=== PATIENT | female | born 1995 | race Two or more races ===

== ENCOUNTER 2017-04-14 00:49 | Emergency (ER) | payer OTHER ==
[2017-04-14 01:01] VITALS: BP 129/77; PULSE 98; TEMP 98.1; BMI 35.0
[2017-04-14 01:22] LABS: URINE APPEARANCE CLEAR; URINE BILIRUBIN NEGATIVE (NEGATIVE); URINE BLOOD NEGATIVE (NEGATIVE); URINE COLOR YELLOW; URINE GLUCOSE (UA) NEGATIVE (NEGATIVE); URINE KETONE NEGATIVE (NEGATIVE); URINE LEUK ESTERASE NEGATIVE (NEGATIVE); URINE NITRITE NEGATIVE (NEGATIVE); URINE PROTEIN NEGATIVE (NEGATIVE); URINE UROBILINOGEN NEGATIVE E.U./dl (0.2-1.0)
--- NOTE | 2017-04-14 02:42 | PDOC ---
History of Present Illness - General Chief Complaint: Pain Stated Complaint: BACK PAIN Time Seen by Provider: 04/14/17 00:52 History Source: Patient Exam Limitations: No Limitations - History of Present Illness Travel History: No Initial Comments: 04/14/17 03:12 22-year-old female with no medical history presents to the emergency department complaining of suprapubic cramping 3 days. Patient denies n/v. f/c/d, abdominal pains, flank pains, urinary symptoms: Frequency/urgency/hesitancy, hematuria, chest pain, shortness of breath. Patient states she's been having cramps for the past 3 days. There are no alleviating or exacerbating factors. LMP 04/04/2017 04/14/17 03:15 Timing/Duration: reports: intermittent Quality: reports: cramping Abdominal Pain Onset Location: reports: LLQ, suprapubic Pain Radiation: reports: no radiation Past History - Past Medical History Allergies/Adverse Reactions: Allergies Allergy/AdvReac Type Severity Reaction Status Date / Time No Known Allergies Allergy Verified 04/14/17 01:01 Home Medications: Ambulatory Orders Amoxicillin/Potassium Clav [Augmentin 875-125 Tablet] 1 each PO BID #20 tablet 10/25/15 Ibuprofen 600 mg PO QID #30 tablet 10/25/15 Other medical history: denies - Psycho/Social/Smoking Cessation Hx Suicidal Ideation: No Smoking Status: No Smoking History: Never smoked Number of Cigarettes Smoked Daily: 0 Hx Alcohol Use: No Drug/Substance Use Hx: No Review of Systems - Review of Systems Able to Perform ROS?: Yes Comments:: 04/14/17 03:13 CONSTITUTIONAL: Absent: fever, chills, diaphoresis, generalized weakness, malaise, loss of appetite HEENT: Absent: rhinorrhea, nasal congestion, throat pain, throat swelling, difficulty swallowing, mouth swelling, ear pain, eye pain, visual Changes CARDIOVASCULAR: Absent: chest pain, loss of consciousness, palpitations, irregular heart rate, peripheral edema RESPIRATORY: Absent: cough, shortness of breath, dyspnea with exertion, orthopnea, wheezing, stridor, hemoptysis GASTROINTESTINAL: +mid suprapubic cramp Absent: abdominal pain, abdominal distension, nausea, vomiting, diarrhea, constipation, melena, hematochezia GENITOURINARY: Absent: dysuria, frequency, urgency, hesitancy, hematuria, flank pain, genital pain MUSCULOSKELETAL: Absent: myalgia, arthralgia, joint swelling SKIN: Absent: rash, itching, pallor HEMATOLOGIC/IMMUNOLOGIC: Absent: easy bleeding, easy bruising, lymphadenopathy, frequent infections ENDOCRINE: Absent: unexplained weight gain, unexplained weight loss, heat intolerance, cold intolerance NEUROLOGIC: Absent: headache, focal weakness or paresthesias, dizziness, unsteady gait, seizure, mental status changes, bladder or bowel incontinence PSYCHIATRIC: Absent: anxiety, depression, suicidal or homicidal ideation, hallucinations. Is the patient limited Lithuanian proficient: No *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 - Vital Signs Last Vital Signs Temp Pulse Resp BP Pulse Ox 98.1 F 98 H 18 129/77 99 04/14/17 00:58 04/14/17 00:58 04/14/17 00:58 04/14/17 00:58 04/14/17 00:58 - 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 Comments: 04/14/17 03:14 GENERAL: Well developed, well nourished. Awake and alert. No acute distress. HEENT: Normocephalic, atraumatic. PERRLA, EOMI. No conjunctival pallor. Sclera are non- icteric. Moist mucous membranes. Oropharynx is clear. NECK: Supple. Full ROM. No JVD. Carotid pulses 2+ and symmetric, without bruits. No thyromegaly. No lymphadenopathy. CARDIOVASCULAR: Regular rate and rhythm. No murmurs, rubs, or gallops. Distal pulses are 2+ and symmetric. PULMONARY: No evidence of respiratory distress. Lungs clear to auscultation bilaterally. No wheezing, rales or rhonchi. ABDOMINAL: Soft. Non-tender. Non-distended. No rebound or guarding. No organomegaly. Normoactive bowel sounds. MUSCULOSKELETAL Normal range of motion at all joints. No bony deformities or tenderness. No CVA tenderness. EXTREMITIES: No cyanosis. No clubbing. No edema. No calf tenderness. SKIN: Warm and dry. Normal capillary refill. No rashes. No jaundice. NEUROLOGICAL: Alert, awake, appropriate. Cranial nerves 2-12 intact. No deficits to light touch and temperature in face, upper extremities and lower extremities. No motor deficits in the in face, upper extremities and lower extremities. Normoreflexic in the upper and lower extremities. Normal speech. Toes are down- going bilaterally. Gait is normal without ataxia. PSYCHIATRIC: Cooperative. Good eye contact. Appropriate mood and affect. ED Treatment Course - LABORATORY CBC & Chemistry Diagram: 04/14/17 02:40 04/14/17 02:40 - ADDITIONAL ORDERS Additional order review: Laboratory Results 04/14/17 04/14/17 00:52 00:51 Urine Color Yellow Urine Appearance Clear Urine pH 5.0 Urine Protein Negative Urine Glucose (UA) Negative Urine Ketones Negative Urine Blood Negative Urine Nitrite Negative Urine Bilirubin Negative Urine Urobilinogen Negative Ur Leukocyte Esterase Negative Urine HCG, Qual Negative Progress Note - Progress Note Progress Note: Patient adamantly refuses to have a CAT scan of her abdomen and pelvis. Patient states she is trying to get . *DC/Admit/Observation/Transfer Diagnosis at time of Disposition: Suprapubic pain - Discharge Dispostion Disposition: HOME Condition at time of disposition: Stable Admit: No - Referrals Referrals: Clark Sales MD [Staff Physician] - - Patient Instructions Additional Instructions: Rest Increase fluids Follow up with the physician on your discharge Return to the ER for severe/persistent/worsening symptoms
[2017-04-14 03:03] LABS: BASOPHIL 0.4 % (0-2.0); EOSINOPHIL 1.3 % (0-4.5); MCH 27.6 pg (25.7-33.7); MCHC 33.1 g/dl (32.0-36.0); MEAN CELL VOLUME 83.4 fl (80-96); MEAN PLT VOLUME 9.1 fl (7.5-11.1); NEUTROPHILS 45.6 % (42.8-82.8); PLATELET COUNT 256 K/MM3 (134-434); RDW 13.1 % (11.6-15.6); WHITE BLOOD COUNT 5.2 K/mm3 (4.0-10.0)
[2017-04-14 03:36] LABS: ALBUMIN 3.5 g/dl (3.4-5.0); ANION GAP 10 (8-16); BILIRUBIN,TOTAL 0.4 mg/dL (0.2-1.0); CALCIUM 8.4 mg/dL (8.5-10.1); CO2 25 mmol/L (21-32); COCKROFT - GAULT 206.7455; CREATININE 0.6 mg/dL (0.55-1.02); GLUCOSE,RANDOM 103 mg/dL (74-106); SGPT/ALT 34 U/L (12-78); TOT PROT 6.8 g/dl (6.4-8.2)
[2017-04-14 03:37] LABS: ALK PHOS 115 U/L (45-117)
[2017-04-14 03:38] LABS: SGOT/AST 34 U/L (15-37)
[2017-04-14 06:11] LABS: PLATELET ESTIMATE ADEQUATE (NORMAL)
== END 2017-04-14 03:19 | disposition home or self-care (01) ==
LOC: JER 00:49
DX: R10.2 Pelvic and perineal pain (principal)
CPT/HCPCS: 36415; 80053; 81003; 84703; 85025; 99281-25

== ENCOUNTER 2017-06-21 10:56 | Emergency (ER) | payer OTHER ==
[2017-06-21 11:03] VITALS: BP 128/72; PULSE 91; TEMP 98.1; BMI 34.0
--- NOTE | 2017-06-21 11:22 | PDOC ---
History of Present Illness - General Chief Complaint: Headache Stated Complaint: HEADACHE (12 WKS ) Time Seen by Provider: 06/21/17 11:16 History Source: Patient Exam Limitations: No Limitations - History of Present Illness Initial Comments: CHIEF COMPLAINT: 22 y/o afebrile female, , approximately 12 week female c/o headache x 1 week. HISTORY OF PRESENT ILLNESS: The patient states the headache is intermittent and located in her temples. She has been taking 650mg of tylenol intermittently with last dose at 2am. She denies f/c, neck pain, changes in vision/hearing, dizziness, cough, n/v/d, CP, SOB, abd pain, back pain, abnormal vaginal discharge, vaginal bleeding. Her LMP was 03/27/17 and her due date is . ER REGISTRAR is Heather Singh Vital signs on arrival are within normal limits. REVIEW OF SYSTEMS: GENERAL/CONSTITUTIONAL: No fever/chills. No weakness. No weight change. HEAD, EYES, EARS, NOSE AND THROAT: No change in vision. No ear pain or discharge. No sore throat. CARDIOVASCULAR: No chest pain or shortness of breath. RESPIRATORY: No cough, wheezing, or hemoptysis. GASTROINTESTINAL: No nausea, vomiting, diarrhea, abdominal pain. GENITOURINARY: No dysuria, frequency, or change in urination. No vaginal bleeding or discharge. MUSCULOSKELETAL: No joint or muscle swelling or pain. No neck or back pain. SKIN: No rash or easy bruising. NEUROLOGIC: No headache, vertigo, loss of consciousness, or loss of sensation. PHYSICAL EXAM: GENERAL: The patient is awake, alert, and fully oriented, in no acute distress. HEAD: Normal with no signs of trauma. Some TTP of caodaism region b/l. No TTP of sinuses. ENT: Pupils equal, round and reactive to light, extraocular movements intact, sclera anicteric, conjunctiva clear. Neck supple. No midline cervical spine TTP or step offs. LUNGS: Clear to auscultation bilaterally. Normal excursion. No respiratory distress or use of accessory muscles. CV: RRR, S1/S2, no MRG. Cap refill < 2 sec. ABDOMEN: Soft, non-distended, non-tender even to deep palpation, no hepatomegaly or splenomegaly, no masses. EXTREMITIES: Normal range of motion, no edema. NEUROLOGICAL: Normal speech, normal gait. CN II-XII grossly intact. PSYCH: Normal mood, normal affect. SKIN: Warm, dry, normal turgor, no rashes or lesions noted. Past History - Past Medical History Allergies/Adverse Reactions: Allergies Allergy/AdvReac Type Severity Reaction Status Date / Time No Known Allergies Allergy Verified 06/21/17 11:01 Home Medications: Ambulatory Orders NK [No Known Home Medication] 06/21/17 Other medical history: denies - Immunization History Immunization Up to Date: Yes - Psycho/Social/Smoking Cessation Hx Suicidal Ideation: No Smoking Status: No Smoking History: Never smoked Number of Cigarettes Smoked Daily: 0 Hx Alcohol Use: No Drug/Substance Use Hx: No *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 - Vital Signs Last Vital Signs Temp Pulse Resp BP Pulse Ox 98.1 F 91 H 18 128/72 100 06/21/17 11:01 06/21/17 11:01 06/21/17 11:01 06/21/17 11:01 06/21/17 11:01 Medical Decision Making - Medical Decision Making A/P: 22 y/o afebrile female, approximately 12 weeks , c/o intermittent MANLEY x 1 week. Given normal exam, will check BP and UA. Informed the patient if both her BP and her UA are normal, will treat with Tylenol and informed her there is not much else to be done except OB follow up. UA negative for proteinuria and UTI. Informed the patient that due to hormones she may have headaches periodically. Suggested she drink 64oz of water daily, take tylenol for MANLEY and f/u with her ER REGISTRAR as soon as possible. Pt instructed her to return to the ER with any worsening or concerning symptoms. The patient verbalizes understanding of all instructions, has no further questions and is awaiting discharge. *DC/Admit/Observation/Transfer Diagnosis at time of Disposition: headache in first trimester - Discharge Dispostion Disposition: HOME Condition at time of disposition: Good - Referrals Referrals: Heather Singh MD [Primary Care Provider] - (Call today) - Patient Instructions Printed Discharge Instructions: DI for Headache Additional Instructions: Discharge Instructions: -Headaches in the first trimester are common due to hormones. -You can take tylenol for headache every 4 hours -Drink at least 64oz of water daily -Call your ER REGISTRAR today to schedule follow up appointment -Return to the ER with any worsening or concerning symptoms.
[2017-06-21 12:31] LABS: URINE APPEARANCE SLCLOUDY; URINE BILIRUBIN NEGATIVE (NEGATIVE); URINE BLOOD NEGATIVE (NEGATIVE); URINE COLOR LTYELLOW; URINE GLUCOSE (UA) NEGATIVE (NEGATIVE); URINE KETONE NEGATIVE (NEGATIVE); URINE LEUK ESTERASE NEGATIVE (NEGATIVE); URINE NITRITE NEGATIVE (NEGATIVE); URINE PROTEIN NEGATIVE (NEGATIVE); URINE UROBILINOGEN NEGATIVE mg/dL (0.2-1.0)
== END 2017-06-21 12:43 | disposition home or self-care (01) ==
LOC: JERFT 10:56
DX: O99.89 Other specified diseases and conditions complicating pregnancy, childbirth and the puerperium (principal); R51 Headache; Z3A.12 12 weeks gestation of pregnancy
CPT/HCPCS: 81003; 87086; 99281-25

== ENCOUNTER 2017-08-07 12:27 | Emergency (ER) | payer OTHER ==
[2017-08-07 12:33] VITALS: BMI 34.3
--- NOTE | 2017-08-07 13:03 | PDOC ---
*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 - Vital Signs Last Vital Signs Temp Pulse Resp BP Pulse Ox 98.3 F 91 H 20 120/68 100 08/07/17 12:30 08/07/17 12:30 08/07/17 12:30 08/07/17 12:30 08/07/17 12:30
--- NOTE | 2017-08-07 13:28 | PDOC ---
History of Present Illness - General Chief Complaint: Pain Stated Complaint: ABD PAIN (19 WKS ) Time Seen by Provider: 08/07/17 12:49 Past History - Past Medical History Allergies/Adverse Reactions: Allergies Allergy/AdvReac Type Severity Reaction Status Date / Time No Known Allergies Allergy Verified 08/07/17 12:33 Home Medications: Ambulatory Orders Vit Calc,Iron,Folic [ Vitamins] 1 each PO DAILY 08/07/17 Other medical history: NONE - Immunization History Immunization Up to Date: Yes - Suicide/Smoking/Psychosocial Hx Smoking Status: No Smoking History: Never smoked Number of Cigarettes Smoked Daily: 0 Hx Alcohol Use: No Drug/Substance Use Hx: No *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 - Vital Signs Last Vital Signs Temp Pulse Resp BP Pulse Ox 98.3 F 91 H 20 120/68 100 08/07/17 12:30 08/07/17 12:30 08/07/17 12:30 08/07/17 12:30 08/07/17 12:30 ED Treatment Course - LABORATORY CBC & Chemistry Diagram: 08/07/17 13:32 08/07/17 13:32 *DC/Admit/Observation/Transfer Diagnosis at time of Disposition: Abdominal pain affecting - Discharge Dispostion Disposition: HOME Condition at time of disposition: Good Admit: No - Referrals Referrals: STAFF,NOT ON [Primary Care Provider] - - Patient Instructions Printed Discharge Instructions: DI for Abdominal Pain -- Early Additional Instructions: You have abdominal pain in . Your testing today was normal. Your ultrasound showed a heart rate that was appropriate for the baby's age. Follow up with your ACLS SPECIALIST Caroline Singh on Saturday. You may take Tylenol for pain not to exceed 4,000mg a day. Return to the ED immediately if you have worsening pain, fevers, chills, bleeding, or any changes in your symptoms. - Post Discharge Activity Forms/Work/School Notes: Back to Work
[2017-08-07 13:48] LABS: BASOPHIL 0.3 % (0-2.0); EOSINOPHIL 1.5 % (0-4.5); MCH 28.5 pg (25.7-33.7); MCHC 34.5 g/dl (32.0-36.0); MEAN CELL VOLUME 82.7 fl (80-96); MEAN PLT VOLUME 8.5 fl (7.5-11.1); NEUTROPHILS 70.2 % (42.8-82.8); PLATELET COUNT 198 K/MM3 (134-434); RDW 13.9 % (11.6-15.6)
[2017-08-07 14:05] LABS: ALBUMIN 3.3 g/dl (3.4-5.0); ANION GAP 10 (8-16); BILIRUBIN,TOTAL 0.3 mg/dL (0.2-1.0); CALCIUM 9.2 mg/dL (8.5-10.1); CO2 24 mmol/L (21-32); CREATININE 0.5 mg/dL (0.55-1.02); GLUCOSE,RANDOM 73 mg/dL (74-106); SGOT/AST 18 U/L (15-37); SGPT/ALT 25 U/L (12-78); TOT PROT 6.7 g/dl (6.4-8.2)
[2017-08-07 14:22] LABS: ALK PHOS 62 U/L (45-117)
[2017-08-07] MEDS ORDERED: ACETAMINOPHEN 325 MG TABLET (FP) PO ONE (14:41)
[2017-08-07 14:49] LABS: URINE APPEARANCE CLEAR; URINE BILIRUBIN NEGATIVE (NEGATIVE); URINE BLOOD NEGATIVE (NEGATIVE); URINE COLOR LTYELLOW; URINE GLUCOSE (UA) NEGATIVE (NEGATIVE); URINE KETONE NEGATIVE (NEGATIVE); URINE LEUK ESTERASE NEGATIVE (NEGATIVE); URINE NITRITE NEGATIVE (NEGATIVE); URINE PROTEIN NEGATIVE (NEGATIVE); URINE UROBILINOGEN NEGATIVE mg/dL (0.2-1.0)
[2017-08-07] MEDS ORDERED: ACETAMINOPHEN 325 MG TABLET (FP) ONE (14:53)
[2017-08-07] MEDS ORDERED: SODIUM CHLORIDE 1,000 ML IV STA (15:47)
[2017-08-07 18:39] VITALS: BP 116/68; PULSE 74; TEMP 98.4
== END 2017-08-07 18:39 | disposition home or self-care (01) ==
LOC: JER 12:27
PROC: 3E0337Z Introduction of Electrolytic and Water Balance Substance into Peripheral Vein, Percutaneous Approach (ICD-10-PCS; principal; 2017-08-07)
DX: O26.892 Other specified pregnancy related conditions, second trimester (principal); R10.84 Generalized abdominal pain; Z3A.19 19 weeks gestation of pregnancy
CPT/HCPCS: 36415; 76700-TC; 76801-TC; 80053; 81003; 83690; 84702; 85025; 87086; 96360; 99282-25

== ENCOUNTER 2017-12-18 09:27 | Inpatient (IN) | payer OTHER ==
[2017-12-18] MEDS: LACTATED RINGERS SOLUTION 1,000 ML IV SCH (10:15)
[2017-12-18 11:17] LABS: INR 0.96 (0.82-1.09); PROTHROMBIN TIME (PATIENT) 10.9 SEC (9.98-11.88)
[2017-12-18 11:19] LABS: BASO % 0.4 % (0-2.0); EOS % 2.1 % (0-4.5); HEMATOCRIT 34.2 % (32.4-45.2); HEMOGLOBIN 11.5 GM/dL (10.7-15.3); LYMPH % 28.1 % (8-40); MCH 27.8 pg (25.7-33.7); MCHC 33.5 g/dl (32.0-36.0); MEAN CELL VOLUME 82.9 fl (80-96); MEAN PLT VOLUME 9.6 fl (7.5-11.1); MONO % 8.5 % (3.8-10.2); NEUT % 60.9 % (42.8-82.8); PLATELET COUNT 158 K/MM3 (134-434); RBC 4.12 M/mm3 (3.60-5.2); RDW 14.6 % (11.6-15.6); WHITE BLOOD COUNT 5.5 K/mm3 (4.0-10.0)
[2017-12-18 11:20] LABS: ACTIVATED PTT 25.7 SECONDS (26.9-34.4)
[2017-12-18 11:21] VITALS: BMI 32.4
[2017-12-18 11:23] LABS: ANION GAP 8 (8-16); BLOOD UREA NITROGEN 9 mg/dL (7-18); CALCIUM 8.4 mg/dL (8.5-10.1); CHLORIDE 108 mmol/L (98-107); CO2 24 mmol/L (21-32); CREATININE 0.6 mg/dL (0.55-1.02); GLUCOSE,RANDOM 67 mg/dL (74-106); POTASSIUM 3.8 mmol/L (3.5-5.1); SODIUM 140 mmol/L (136-145)
[2017-12-18] MEDS ORDERED: CITRIC ACID/SODIUM CITRATE 30 ML UNIT-DOSE CUP PO ONE (14:38)
--- NOTE | 2017-12-18 14:44 | HP ---
Past Medical History - Admission Chief Complaint: Previous / Oligohydramnios / Breech History of Present Illness: 22 yo @ 39 weeks gestation, EDC 01/01/18, sent from Dr. Coleman's office for delivery. She had one previous and was diagnosed with oligohydramnios. Fetus is in breech presentation. History Source: Patient Limitations to Obtaining History: No Limitations - Past Medical History ...: 2 ...Para: 1 ...Term: 1 ...: 0 ...Spon : 0 ...Induced : 0 ...Multiple Gestation: 0 ...LMP: 03/27/17 ... Weeks Gestation by Dates: 38.0 ...EDC by Dates: 01/01/18 ...EDC by Sono: 01/01/18 - Past Surgical History Past Surgical History: Yes: Hx Myomectomy: No Hx Transabdominal Cerclage: No - Smoking History Smoking history: Never smoked Have you smoked in the past 12 months: No Aproximately how many cigarettes per day: 0 - Alcohol/Substance Use Hx Alcohol Use: No History of Substance Use: reports: None - Social History Usual Living Arrangement: Yes: With Spouse History of Recent Travel: No Home Medications - Allergies Allergies/Adverse Reactions: Allergies Allergy/AdvReac Type Severity Reaction Status Date / Time No Known Allergies Allergy Verified 12/18/17 10:54 - Home Medications Home Medications: Ambulatory Orders Vit Calc,Iron,Folic [ Vitamins] 1 each PO DAILY 08/07/17 Ferrous Sulfate [Iron] 325 mg PO DAILY 12/18/17 Review of Systems - Review of Systems Constitutional: reports: No Symptoms Eyes: reports: No Symptoms HENT: reports: No Symptoms Neck: reports: No Symptoms Cardiovascular: reports: No Symptoms Respiratory: reports: No Symptoms Gastrointestinal: reports: No Symptoms Genitourinary: reports: Pain Breasts: reports: No Symptoms Reported Musculoskeletal: reports: No Symptoms Integumentary: reports: No Symptoms Neurological: reports: No Symptoms Endocrine: reports: No Symptoms Hematology/Lymphatic: reports: No Symptoms Psychiatric: reports: No Symptoms Pain Intensity: 3 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 - Maternity Vital Signs: Vital Signs Temperature 97.9 F 12/18/17 13:00 Pulse Rate 18 L 12/18/17 13:00 Respiratory Rate 106 H 12/18/17 13:00 Blood Pressure 106/66 12/18/17 13:00 O2 Sat by Pulse Oximetry (%) Constitutional: Yes: Well Nourished Eyes: Yes: Conjunctiva Clear HENT: Yes: Atraumatic Neck: Yes: Supple Cardiovascular: Yes: Regular Rate and Rhythm Lungs: Clear to auscultation - Abdominal Exam/OB Number of Fetuses: Single Presentation: Breech Contractions: Yes - 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 ...Motor Strength: WNL Psychiatric: Yes: Alert, Oriented - Labs Lab Results: CBC, BMP 12/18/17 10:45 12/18/17 10:45 Problem List - Problems (1) Previous section complicating , antepartum condition or complication Code(s): O34.219 - MATERNAL CARE FOR UNSP TYPE SCAR FROM PREVIOUS DEL (2) Oligohydramnios antepartum Code(s): O41.00X0 - OLIGOHYDRAMNIOS, UNSP TRIMESTER, NOT APPLICABLE OR UNSP Qualifiers: Fetus number: fetus 1 of multiple gestation Qualified Code(s): O41.00X1 - Oligohydramnios, unspecified trimester, fetus 1 Assessment/Plan Previous Oligohydramnios Breech presentation Pre op for repeat Consent signed Anesthesia to see patient
[2017-12-18] MEDS ORDERED: ELECTROLYTE-148 SOLN 1,000 ML IV SCH (14:45)
[2017-12-18] MEDS ORDERED: OXYTOCIN 20 UNITS in 0.9% NS 20 UNIT/1,000 ML INFUS.BAG IV ONE (15:36)
[2017-12-18] MEDS ORDERED: ePHEDrine SULFATE 50 MG/1 ML AMPULE ONE (15:38)
[2017-12-18] MEDS ORDERED: morphine SULFATE/Preservative Free 0.5 MG/ML (1cc Syringe) ONE (15:38)
[2017-12-18] MEDS ORDERED: ceFAZolin SODIUM 1 GM VIAL ONE (15:41)
[2017-12-18] MEDS ORDERED: OXYTOCIN 10 UNITS/ML VIAL ONE (15:58)
[2017-12-18] MEDS ORDERED: METHYLERGONOVINE MALEATE 0.2 MG/1 ML AMP IM PRN (16:31)
--- NOTE | 2017-12-18 16:35 | OP ---
Operative Note - Note: Operative Date: 12/18/17 Pre-Operative Diagnosis: Previous / Oligohydramnios / Breech presentation Operation: Repeat Findings: Baby in familia breech position Post-Operative Diagnosis: Same as Pre-op Surgeon: Shayy Payton Vulnerability Researcher: Lion German Anesthesia: Spinal Specimens Removed: Placenta Estimated Blood Loss (mls): 600
[2017-12-18] MEDS ORDERED: ONDANSETRON 4 MG/2 ML VIAL IVPUSH PRN (16:40)
[2017-12-18] MEDS: OXYTOCIN 20 UNITS in 0.9% NS 20 UNIT/1,000 ML INFUS.BAG IV SCH (17:15)
[2017-12-18] MEDS ORDERED: IBUPROFEN 800 MG/8 ML IJ IVPB ONE (17:32)
[2017-12-18] MEDS: IBUPROFEN 800 MG/8 ML IJ IVPB PRN (17:35)
[2017-12-19] MEDS: IBUPROFEN 800 MG/8 ML IJ IVPB PRN (05:18)
[2017-12-19 08:57] LABS: BASO % 0.3 % (0-2.0); EOS % 1.3 % (0-4.5); HEMATOCRIT 32.7 % (32.4-45.2); LYMPH % 18.1 % (8-40); MCH 28.1 pg (25.7-33.7); MCHC 33.7 g/dl (32.0-36.0); MEAN CELL VOLUME 83.2 fl (80-96); MEAN PLT VOLUME 9.7 fl (7.5-11.1); MONO % 7.5 % (3.8-10.2); NEUT % 72.8 % (42.8-82.8); PLATELET COUNT 147 K/MM3 (134-434); RBC 3.93 M/mm3 (3.60-5.2); RDW 14.6 % (11.6-15.6); WHITE BLOOD COUNT 5.9 K/mm3 (4.0-10.0)
--- NOTE | 2017-12-19 09:31 | PN ---
Post Progress Note - Subjective Subjective: 22 yo Para 2 status post repeat , seen and evaluated. Doing well. Post Day: 1 Type of Delivery: Primary C/S Vital Signs: Vital Signs Temperature 98.9 F 12/19/17 06:00 Pulse Rate 80 12/19/17 06:00 Respiratory Rate 18 12/19/17 06:00 Blood Pressure 111/67 12/19/17 06:00 O2 Sat by Pulse Oximetry (%) 100 12/18/17 17:55 Breast Exam: Yes: Soft Incision: Yes: Dressing dry and intact Abdomen/GI: Yes: Abdomen soft, Tolerating PO Lochia: Yes: Rubra Lochia, amount: Small Extremities: Yes: Calves non-tender Perineum: Yes: Intact Activity: Other (She's lying in bed) - Labs Labs: CBC WBC 5.9 K/mm3 (4.0-10.0) 12/19/17 07:45 RBC 3.93 M/mm3 (3.60-5.2) 12/19/17 07:45 Hgb 11.0 GM/dL (10.7-15.3) 12/19/17 07:45 Hct 32.7 % (32.4-45.2) 12/19/17 07:45 MCV 83.2 fl (80-96) 12/19/17 07:45 MCH 28.1 pg (25.7-33.7) 12/19/17 07:45 MCHC 33.7 g/dl (32.0-36.0) 12/19/17 07:45 RDW 14.6 % (11.6-15.6) 12/19/17 07:45 Plt Count 147 K/MM3 (134-434) 12/19/17 07:45 MPV 9.7 fl (7.5-11.1) 12/19/17 07:45 Neutrophils % 72.8 % (42.8-82.8) 12/19/17 07:45 Lymphocytes % 18.1 % (8-40) D 12/19/17 07:45 Monocytes % 7.5 % (3.8-10.2) 12/19/17 07:45 Eosinophils % 1.3 % (0-4.5) 12/19/17 07:45 Basophils % 0.3 % (0-2.0) 12/19/17 07:45 Problem List - Problems (1) Previous section complicating , antepartum condition or complication Code(s): O34.219 - MATERNAL CARE FOR UNSP TYPE SCAR FROM PREVIOUS DEL (2) Oligohydramnios antepartum Code(s): O41.00X0 - OLIGOHYDRAMNIOS, UNSP TRIMESTER, NOT APPLICABLE OR UNSP Qualifiers: Fetus number: fetus 1 of multiple gestation Qualified Code(s): O41.00X1 - Oligohydramnios, unspecified trimester, fetus 1 Assessment/Plan Status post repeat Stable Ambulation Analgesia as needed Continue routine post op care
[2017-12-19] MEDS: SIMETHICONE 80 MG TAB.CHEW (FP) PO PRN (16:12)
[2017-12-19] MEDS: oxyCODONE HCL 5 MG TABLET PO PRN (16:13)
[2017-12-19] MEDS: IBUPROFEN 600 MG TABLET (FP) PO PRN (16:14)
[2017-12-19] MEDS ORDERED: BISACODYL 10 MG SUPP.RECT RC PRN (16:31)
[2017-12-19] MEDS: LACTATED RINGERS SOLUTION 1,000 ML IV SCH (18:21)
[2017-12-19] MEDS: OXYTOCIN 20 UNITS in 0.9% NS 20 UNIT/1,000 ML INFUS.BAG IV SCH (18:21)
--- NOTE | 2017-12-19 18:30 | PN ---
Progress Note (short form) - Note Progress Note: Anesthesia post op note POD#1, S/P repeat .under Spinal with duramorph. VSS. Ambulating. No apparent post anesthesia complications. Signed off.
[2017-12-20] MEDS: SIMETHICONE 80 MG TAB.CHEW (FP) PO PRN ×3 (05:28→20:39)
[2017-12-20] MEDS: oxyCODONE HCL 5 MG TABLET PO PRN ×3 (05:28→20:39)
[2017-12-20] MEDS: IBUPROFEN 600 MG TABLET (FP) PO PRN ×3 (05:30→20:39)
[2017-12-21] MEDS: SIMETHICONE 80 MG TAB.CHEW (FP) PO PRN (03:59)
[2017-12-21] MEDS: IBUPROFEN 600 MG TABLET (FP) PO PRN ×2 (03:59→17:22)
[2017-12-21] MEDS: oxyCODONE HCL 5 MG TABLET PO PRN (03:59)
--- NOTE | 2017-12-21 06:53 | PN ---
Post Progress Note - Subjective Subjective: 22 yo Para 2 status post repeat , seen and evaluated. She c/o incision pain. Post Day: 3 Type of Delivery: Repeat C/S Vital Signs: Vital Signs Temperature 98.4 F 12/20/17 21:00 Pulse Rate 74 12/20/17 21:00 Respiratory Rate 18 12/20/17 21:00 Blood Pressure 105/66 12/20/17 21:00 O2 Sat by Pulse Oximetry (%) 100 12/18/17 17:55 Breast Exam: Yes: Soft Uterus: Yes: Fundus Firm, Other (Sterile strip in place) Abdomen/GI: Yes: Abdomen soft, Tolerating PO Lochia: Yes: Rubra Lochia, amount: Small Extremities: Yes: Calves non-tender Perineum: Yes: Intact Activity: Ambulating - Labs Labs: CBC WBC 5.9 K/mm3 (4.0-10.0) 12/19/17 07:45 RBC 3.93 M/mm3 (3.60-5.2) 12/19/17 07:45 Hgb 11.0 GM/dL (10.7-15.3) 12/19/17 07:45 Hct 32.7 % (32.4-45.2) 12/19/17 07:45 MCV 83.2 fl (80-96) 12/19/17 07:45 MCH 28.1 pg (25.7-33.7) 12/19/17 07:45 MCHC 33.7 g/dl (32.0-36.0) 12/19/17 07:45 RDW 14.6 % (11.6-15.6) 12/19/17 07:45 Plt Count 147 K/MM3 (134-434) 12/19/17 07:45 MPV 9.7 fl (7.5-11.1) 12/19/17 07:45 Neutrophils % 72.8 % (42.8-82.8) 12/19/17 07:45 Lymphocytes % 18.1 % (8-40) D 12/19/17 07:45 Monocytes % 7.5 % (3.8-10.2) 12/19/17 07:45 Eosinophils % 1.3 % (0-4.5) 12/19/17 07:45 Basophils % 0.3 % (0-2.0) 12/19/17 07:45 Problem List - Problems (1) Previous section complicating , antepartum condition or complication Code(s): O34.219 - MATERNAL CARE FOR UNSP TYPE SCAR FROM PREVIOUS DEL (2) Oligohydramnios antepartum Code(s): O41.00X0 - OLIGOHYDRAMNIOS, UNSP TRIMESTER, NOT APPLICABLE OR UNSP Qualifiers: Fetus number: fetus 1 of multiple gestation Qualified Code(s): O41.00X1 - Oligohydramnios, unspecified trimester, fetus 1 Assessment/Plan Status post repeat Ambulation Analgesia as needed Continue routine post op care
[2017-12-21 07:09] LABS: BASO % 0.5 % (0-2.0); EOS % 5.2 % (0-4.5); HEMATOCRIT 31.7 % (32.4-45.2); HEMOGLOBIN 10.6 GM/dL (10.7-15.3); LYMPH % 39.4 % (8-40); MCH 27.9 pg (25.7-33.7); MCHC 33.4 g/dl (32.0-36.0); MEAN CELL VOLUME 83.6 fl (80-96); MEAN PLT VOLUME 9.3 fl (7.5-11.1); MONO % 10.7 % (3.8-10.2); NEUT % 44.2 % (42.8-82.8); PLATELET COUNT 162 K/MM3 (134-434); RBC 3.79 M/mm3 (3.60-5.2); RDW 14.3 % (11.6-15.6); WHITE BLOOD COUNT 4.8 K/mm3 (4.0-10.0)
[2017-12-22 09:10] VITALS: BP 114/72; PULSE 78; TEMP 98.2
--- NOTE | 2017-12-22 09:21 | DS ---
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 TECHNICIAN Vital Signs: Vital Signs Temperature 98.2 F 12/22/17 09:07 Pulse Rate 78 12/22/17 09:07 Respiratory Rate 20 12/22/17 09:07 Blood Pressure 114/72 12/22/17 09:07 O2 Sat by Pulse Oximetry (%) 100 12/18/17 17:55 Constitutional: Yes: Well Nourished Eyes: Yes: Conjunctiva Clear HENT: Yes: Atraumatic Neck: Yes: Supple Cardiovascular: Yes: Regular Rate and Rhythm Respiratory: Yes: Regular Gastrointestinal: Yes: Normal Bowel Sounds Pelvis: Yes: WNL External Genitalia: Yes: Normal Vaginal Exam: Yes: Normal Cervix: Yes: Normal Uterus: Yes: Firm Musculoskeletal: Yes: WNL Extremities: Yes: WNL Wound/Incision: Yes: Well Approximated Neurological: Yes: Alert, Oriented ...Motor Strength: WNL Psychiatric: Yes: Alert, Oriented Labs: CBC, BMP 12/21/17 06:17 12/18/17 10:45 Delivery - Delivery Type of Anesthesia: Spinal Episiotomy/Laceration: None EBL (cc): 600 Delivery, Single - Stages of Labor Date of Delivery: 12/18/17 Time of Delivery: 15:59 Time Placenta Delivered: 16:00 - Condition of Infant 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 Present: Yes Name: Love Rodriguez Infant Gender: Male Weight: 7 lb 4.8 oz Total Hours ROM (Hrs/Mins): 2mins - 1 Minute Total Score: 8 5 Minutes Total Score: 9 - Feeding Plan Initial Plan: Exclusive throughout hospitalization Discharge Summary Reason For Visit: OLIGO HYDRAMNIOS Current Active Problems Oligohydramnios antepartum (Acute) Previous section complicating , antepartum condition or complication (Acute) Procedures: Principal: Repeat Low Transverse Hospital Course: Routine Post op care Condition: Good - Instructions Diet, Activity, Other Instructions: Regular diet No driving, no lifting x 4 weeks F/U in clinic in 2 weeks Disposition: HOME - Home Medications Comprehensive Discharge Medication List: Ambulatory Orders Vit Calc,Iron,Folic [ Vitamins] 1 each PO DAILY 08/07/17 Ferrous Sulfate [Iron] 325 mg PO DAILY 12/18/17
--- NOTE | 2017-12-27 16:02 | PATH ---
Surgical Pathology Report Patient Name: GRACIA CELIS Med. Rec. #: [id number] /Age/Gender: 1995 (Age: 22) / F Account: [id number] Location: [facility] OBS/MANAGER HELPDESK Taken: 12/18/2017 Received: 12/19/2017 Reported: 12/27/2017 Physicians: Shayy Payton M.D. Specimen(s) Received PLACENTA Clinical History , 38 weeks Oligohydramnios 4.7, repeat breech Final Diagnosis PLACENTA, SECTION: 455 g THIRD TRIMESTER PLACENTA WITH TRIVASCULAR UMBILICAL CORD AND UNREMARKABLE PLACENTAL MEMBRANES. Electronically Signed Latanya Fraser M.D. Gross Description The specimen is received fresh labeled placenta and is a 455 gram, 16.0 x 15.5 x 2.8 cm. placenta with attached membranes and umbilical cord. The attached membranes are urban, translucent with focal opacities and insert marginally. The umbilical cord measures 39 cm. in length and averages 1.2 cm. in diameter. The cord inserts eccentrically, 2 cm. to the nearest margin. No true knots or strictures are identified. Cut surface of the umbilical cord reveals 3 vessels. The surface is ko-blue with minimal fibrin deposition and appropriate caliber vessels. The maternal surface is red-brown with focal defects. Sectioning reveals red-brown, spongy parenchyma. No lesions are identified. Server Systems Administrator sections are submitted in three cassettes as follows: 1- membrane rolls and umbilical cord; 2-3- full thickness sections of placenta. 12/25/2017 [facility]12/25/2017
== END 2017-12-22 12:10 | disposition home or self-care (01) | DRG 540 ==
LOC: JDEL 09:27 → JLDR 10:00 → J3W 18:15
PROVIDERS: ADMIT Obstetrics & Gynecology; ATTEND Obstetrics & Gynecology
PROC: 10D00Z1 Extraction of Products of Conception, Low, Open Approach (ICD-10-PCS; principal; 2017-12-18)
DX: O41.03X0 Oligohydramnios, third trimester, not applicable or unspecified (principal); O32.1XX0 Maternal care for breech presentation, not applicable or unspecified; O34.219 Maternal care for unspecified type scar from previous cesarean delivery; Z3A.39 39 weeks gestation of pregnancy; Z37.0 Single live birth
CPT/HCPCS: 36415; 80048; 85025; 85610; 85730; 86593; 86850; 86900; 86901

== ENCOUNTER 2021-05-16 09:39 | Emergency (ER) | payer OTHER ==
[2021-05-16 09:51] VITALS: BP 136/86; PULSE 117; TEMP 98; BMI 32.9
[2021-05-16] MEDS ORDERED: DEXAMETHASONE LIQUID 0.5 MG/5 ML PO ONE (10:10)
[2021-05-16] MEDS ORDERED: DEXAMETHASONE SOD PHOSPHATE 10 MG/1 ML VIAL ONE (10:17)
[2021-05-16 10:37] LABS: URINE APPEARANCE CLEAR; URINE BILIRUBIN NEGATIVE (NEGATIVE); URINE COLOR YELLOW; URINE GLUCOSE (UA) NEGATIVE (NEGATIVE); URINE KETONE NEGATIVE (NEGATIVE); URINE LEUK ESTERASE NEGATIVE (NEGATIVE); URINE NITRITE NEGATIVE (NEGATIVE); URINE PROTEIN NEGATIVE (NEGATIVE)
[2021-05-16 10:39] LABS: HCG,QUALITATIVE URINE Negative
== END 2021-05-16 11:51 | disposition home or self-care (01) ==
LOC: JER 09:39 → JERFT 09:39
DX: J02.0 Streptococcal pharyngitis (principal)
CPT/HCPCS: 81003; 84703; 87086; 87880; 99283-25

== ENCOUNTER 2022-01-18 09:18 | Emergency (ER) | payer OTHER ==
[2022-01-18 09:29] VITALS: BP 127/82; PULSE 111; TEMP 99.9; BMI 32.9
[2022-01-18] MEDS ORDERED: IBUPROFEN 400 MG TABLET (FP) PO ONE ×2 (09:47→10:03)
== END 2022-01-18 10:30 | disposition home or self-care (01) ==
LOC: JER 09:18
DX: J02.0 Streptococcal pharyngitis (principal)
CPT/HCPCS: 87651; 99283-25